=== PATIENT | male | born 1970 | race American Indian/Alaskan Native ===

== ENCOUNTER 2019-09-08 18:30 | Emergency (ER) | payer OTHER ==
--- NOTE | 2019-09-08 22:10 | Event Note ---
ED Screening Note ED Screening Note: c/o back pain upper abd pain states that he went to the ED three weeks ago and had acute pancreatitis no n/v/d no fever no urinary sx PMHx DM and neuropathy, HTN, HLD on insulin no allergies to meds This initial assessment/diagnostic orders/clinical plan/treatment(s) is/are subject to change based on patients health status, clinical progression and re- assessment by fellow clinical providers in the ED. Further treatment and workup at subsequent clinical providers discretion. Patient/guardian urged not to elope from the ED as their condition may be serious if not clinically assessed and managed. Initial orders include: labs, UA
[2019-09-08 23:07] LABS: Basophils # (Auto) 0.1 K/mm3 (0.0-0.1); Basophils % (Auto) 0.7 % (0.0-1.8); Eosinophils # (Auto) 0.1 K/mm3 (0.0-0.4); Eosinophils % (Auto) 0.6 % (0.0-4.3); Hematocrit 43.7 % (35.5-45.6); Hemoglobin 14.7 gm/dl (11.8-15.2); Lymphocytes # (Auto) 2.3 K/mm3 (1.2-5.4); Lymphocytes % (Auto) 24.6 % (13.4-35.0); Mean Corpuscular HGB Conc 34 % (32-34); Mean Corpuscular Volume 88 fl (84-94); Monocytes # (Auto) 0.6 K/mm3 (0.0-0.8); Monocytes % (Auto) 6.9 % (0.0-7.3); Platelet Count 241 K/mm3 (140-440); Red Blood Count 4.99 M/mm3 (3.65-5.03); Red Cell Distribution Width 14.2 % (13.2-15.2)
[2019-09-08 23:30] LABS: Alanine Aminotransferase 14 units/L (7-56); Albumin 4.4 g/dL (3.9-5); BUN/Creatinine Ratio 19; Blood Urea Nitrogen 19 mg/dL (9-20); Calcium 9.6 mg/dL (8.4-10.2); Hemolysis Index 11
[2019-09-09 01:41] LABS: Bilirubin,Urine NEG (Negative); Blood,Urine NEG (Negative); Color,Urine Straw (Yellow); Hyaline Casts,Urine 1 /LPF; Mucus,Urine FEW /HPF; Protein,Urine <15 mg/dL mg/dL (Negative); Urobilinogen,Urine < 2.0 mg/dL (<2.0)
--- NOTE | 2019-09-09 01:57 | Emergency Department Report ---
ED Abdominal Pain HPI - General Chief Complaint: Abdominal Pain Stated Complaint: BACK PAIN Time Seen by Provider: 09/08/19 22:08 Source: patient Mode of arrival: Ambulatory Limitations: No Limitations - History of Present Illness Initial Comments: 49-year-old -[place] male patient with a history of diabetes presents with complaints of right flank pain radiating around to his right/mid abdomen x 1 month. Patient reports he was diagnosed with pancreatitis when he went to the ED for back pain and abdominal pain about one month ago and was admitted. Patient states he also has followed up with his primary care concerning his back pain and was prescribed muscle relaxers which have not helped. He denies any nausea/vomiting/diarrhea, hematochezia/melena, dysuria/hematuria/urinary frequency, or history of gallstones. He rates his pain as 8/10 in severity. He states ibuprofen is not helping. MD Complaint: abdominal pain, flank pain -: month(s) Location: R flank Radiation: RUQ, RLQ, other (periumbilical) Severity scale (0 -10): 8 Quality: aching, sharp Consistency: constant Improves With: nothing Worsens With: nothing Associated Symptoms: denies other symptoms - Related Data Home Medications Medication Instructions Recorded Confirmed Last Taken Ciprofloxacin HCl 1 tab PO BID 03/29/15 03/31/15 03/30/15 09:00 Ibuprofen [Advil 100 MG tab] 200 mg PO Q6H PRN 03/29/15 03/29/15 03/28/15 Insulin Aspart (Nf) [NovoLOG 20 units SQ QAM 03/29/15 03/31/15 03/30/15 09:00 Flexpen] Tamsulosin [Flomax] 0.4 mg PO QDAY 03/29/15 03/29/15 03/26/15 Previous Rx's Medication Instructions Recorded Last Taken Type Acetaminophen/Codeine [Tylenol 1 tab PO Q6H PRN #8 tab 09/09/19 Unknown Rx /Codeine # 3 tab] Allergies Allergy/AdvReac Type Severity Reaction Status Date / Time No Known Allergies Allergy Unverified 03/29/15 08:47 ED Review of Systems ROS: Stated complaint: BACK PAIN Other details as noted in HPI Constitutional: denies: chills, diaphoresis, fever, malaise, weakness ENT: denies: throat pain Respiratory: denies: cough, shortness of breath Cardiovascular: denies: chest pain, palpitations Gastrointestinal: abdominal pain, nausea. denies: vomiting, diarrhea, constipation, hematemesis, melena, hematochezia Genitourinary: denies: urgency, dysuria, frequency, hematuria Musculoskeletal: back pain Skin: denies: rash, lesions Neurological: denies: headache, weakness, paresthesias Hematological/Lymphatic: denies: easy bleeding, swollen glands ED Past Medical Hx - Past Medical History Previous Medical History?: Yes Hx Hypertension: No (patient denies - says hasn't taken bp meds for long time) Hx Diabetes: Yes (TYPE II 2011) Hx GERD: Yes Hx HIV: No - Social History Smoking Status: Never Smoker Substance Use Type: None - Medications Home Medications: Home Medications Medication Instructions Recorded Confirmed Last Taken Type Ciprofloxacin HCl 1 tab PO BID 03/29/15 03/31/15 03/30/15 09:00 History Ibuprofen [Advil 100 MG tab] 200 mg PO Q6H PRN 03/29/15 03/29/15 03/28/15 Histor y Insulin Aspart (Nf) [NovoLOG 20 units SQ QAM 03/29/15 03/31/15 03/30/15 09:00 History Flexpen] Tamsulosin [Flomax] 0.4 mg PO QDAY 03/29/15 03/29/15 03/26/15 History Acetaminophen/Codeine [Tylenol 1 tab PO Q6H PRN #8 tab 09/09/19 Unknown Rx /Codeine # 3 tab] ED Physical Exam - General Limitations: No Limitations General appearance: alert, in no apparent distress - Head Head exam: Present: atraumatic, normocephalic - Eye Eye exam: Present: normal appearance. Absent: scleral icterus - ENT ENT exam: Present: normal orophraynx, mucous membranes moist - Neck Neck exam: Present: normal inspection, full ROM - Respiratory Respiratory exam: Present: normal lung sounds bilaterally. Absent: respiratory distress - Cardiovascular Cardiovascular Exam: Present: normal rhythm, tachycardia - GI/Abdominal GI/Abdominal exam: Present: soft, tenderness (RUQ, RLQ, periumbilical ), normal bowel sounds. Absent: distended, guarding, rebound, rigid, organomegaly, mass - Extremities Exam Extremities exam: Present: normal inspection. Absent: pedal edema - Back Exam Back exam: Present: normal inspection, CVA tenderness (R). Absent: CVA tende rness (L) - Neurological Exam Neurological exam: Present: alert, oriented X3 - Psychiatric Psychiatric exam: Present: normal affect, normal mood - Skin Skin exam: Present: warm, dry, intact, normal color. Absent: rash ED Course Vital Signs 09/08/19 09/08/19 09/09/19 19:14 22:08 03:41 Temperature 98.9 F 99 F Pulse Rate 121 H 116 H Respiratory 18 18 20 Rate Blood Pressure 136/91 136/91 Blood Pressure [Left] O2 Sat by Pulse 98 99 Oximetry 09/09/19 09/09/19 09/09/19 03:42 04:11 04:12 Temperature Pulse Rate Respiratory 20 20 20 Rate Blood Pressure Blood Pressure [Left] O2 Sat by Pulse Oximetry 09/09/19 06:40 Temperature 98.6 F Pulse Rate 88 Respiratory 20 Rate Blood Pressure Blood Pressure 128/72 [Left] O2 Sat by Pulse 97 Oximetry ED Medical Decision Making - Lab Data Result diagrams: 09/08/19 22:49 09/08/19 22:49 - Radiology Data Radiology results: report reviewed CT ABDOMEN AND PELVIS WITH CONTRAST HISTORY: Right flank, right abdominal pain, recent pancreat. COMPARISON: CT abdomen/pelvis from 07/16/2010 TECHNIQUE: CT images of the abdomen and pelvis were obtained following administration of intravenous contrast. All CT scans at this location are performed using CT dose reduction for ALARA by means of automated exposure control. CONTRAST: 100 ml of intravenous contrast administered. FINDINGS: Lungs/bones: Lung bases are clear. No acute osseous abnormality. Mild degenerative changes are present in the spine. Abdomen/pelvis: The liver, gallbladder, spleen, pancreas, adrenals, kidneys, and proximal GI tract appear unremarkable. Urinary bladder and prostate are unremarkable with no pelvic free fluid or acute colonic abnormality. The appendix and terminal ileum appear normal. IMPRESSION: 1. Unremarkable examination. LIMITED RUQ ABDOMINAL ULTRASOUND INDICATION: flank/RUQ pain. COMPARISON: CT abdomen/pelvis from today. FINDINGS: Pancreas: Visualized portions show no significant abnormality. Abdominal Aorta: No significant abnormality. IVC: No significant abnormality. Liver: The liver measures 15.6 cm in length. Mildly echogenic in relation to the renal cortex. Normal hepatopedal blood flow in the main portal vein. Gallbladder: No significant abnormality. Bile ducts: No significant abnormality. Common bile duct measures 1 mm. Right kidney: No significant abnormality visualized.. Free fluid: None. Additional Findings: None. IMPRESSION: 1. Mildly echogenic liver, most commonly seen with steatosis. Otherwise nothing acute. - Medical Decision Making 49-year-old -[place] male patient with a history of diabetes presents with complaints of right flank pain radiating around to his right/mid abdomen x 1 month. CBC shows normal white count. CMP and lipase are without acute findings. CT abdomen and right upper quadrant ultrasound are also without acute findings. Patient initially tachycardic upon arrival, heart rate now 78 after saline fluid bolus. He is nontoxic appearing and stable for discharge home. Patient informed to follow-up with gastroenterology within the next 2 days. Discussed strict return precautions in great detail with patient who verbalizes understanding. Critical care attestation.: If time is entered above; I have spent that time in minutes in the direct care of this critically ill patient, excluding procedure time. ED Disposition Clinical Impression: Right flank pain Abdominal pain Qualifiers: Abdominal location: generalized Qualified Code(s): R10.84 - Generalized abdominal pain Disposition: DC-01 TO HOME OR SELFCARE Is pt being admited?: No Condition: Stable Instructions: Abdominal Pain (ED) Prescriptions: Acetaminophen/Codeine [Tylenol /Codeine # 3 tab] 1 tab PO Q6H PRN #8 tab PRN Reason: Pain , Severe (7-10) Referrals: [facility] [Provider Group] - 2-3 Days Forms: Accompanied Note, Work/School Release Form(ED)
[2019-09-09] MEDS ORDERED: ONDANSETRON 4 MG/2 ML INJ IV ONE (02:01)
[2019-09-09] MEDS ORDERED: KETOROLAC 30 MG/1 ML INJ IV ONE (02:01)
[2019-09-09] MEDS ORDERED: MORPHINE 4 MG/1 ML INJ IV ONE (02:01)
[2019-09-09] MEDS ORDERED: SODIUM CHLORIDE 0.9% 1000 ML 1,000 ML IV ONE (02:01)
--- NOTE | 2019-09-09 05:05 | Cat Scan Report ---
CT ABDOMEN AND PELVIS WITH CONTRAST HISTORY: Right flank, right abdominal pain, recent pancreat. COMPARISON: CT abdomen/pelvis from 07/16/2010 TECHNIQUE: CT images of the abdomen and pelvis were obtained following administration of intravenous contrast. All CT scans at this location are performed using CT dose reduction for ALARA by means of automated exposure control. CONTRAST: 100 ml of intravenous contrast administered. FINDINGS: Lungs/bones: Lung bases are clear. No acute osseous abnormality. Mild degenerative changes are prese nt in the spine. Abdomen/pelvis: The liver, gallbladder, spleen, pancreas, adrenals, kidneys, and proximal GI tract a ppear unremarkable. Urinary bladder and prostate are unremarkable with no pelvic free fluid or acute colonic abnormality. The appendix and terminal ileum appear normal. IMPRESSION: 1. Unremarkable examination. Signer Name: Carlos Manuel Pena MD Signed: 09/09/2019 5:01 AM Workstation Name: [email or web address]
--- NOTE | 2019-09-09 05:44 | Ultrasound Report ---
LIMITED RUQ ABDOMINAL ULTRASOUND INDICATION: flank/RUQ pain. COMPARISON: CT abdomen/pelvis from today. FINDINGS: Pancreas: Visualized portions show no significant abnormality. Abdominal Aorta: No significant abnormality. IVC: No significant abnormality. Liver: The liver measures 15.6 cm in length. Mildly echogenic in relation to the renal cortex. Shivani l hepatopedal blood flow in the main portal vein. Gallbladder: No significant abnormality. Bile ducts: No significant abnormality. Common bile duct measures 1 mm. Right kidney: No significant abnormality visualized.. Free fluid: None. Additional Findings: None. IMPRESSION: 1. Mildly echogenic liver, most commonly seen with steatosis. Otherwise nothing acute. Signer Name: Carlos Manuel Pena MD Signed: 09/09/2019 5:40 AM Workstation Name: [id number]
[2019-09-09 07:18] VITALS: BP 128/72
== END 2019-09-09 06:40 | disposition home or self-care (01) ==
LOC: ED 18:30
DX: R10.10 Upper abdominal pain, unspecified (principal); M54.9 Dorsalgia, unspecified; E11.9 Type 2 diabetes mellitus without complications; K21.9 Gastro-esophageal reflux disease without esophagitis; Z79.899 Other long term (current) drug therapy
CPT/HCPCS: 36415; 74177; 76705; 80053; 81001; 83690; 85025; 96374; 96375; 99284; J1885; J2270; J2405; J7030; Q9967

== ENCOUNTER 2019-10-18 16:06 | Emergency (ER) | payer OTHER ==
[2019-10-18] MEDS ORDERED: SODIUM CHLORIDE 0.9% 1000 ML 1,000 ML IV ONE ×2 (17:11→20:12)
--- NOTE | 2019-10-18 17:14 | Emergency Department Report ---
Blank Doc - Documentation Documentation: 49 pmh Type 2 DM,HTN, c/op no eating x 4 days and having chest pain , fatigue, weakness, dizziness. No cough or fever. No travel. Plan Cardiac labs and cxr.
[2019-10-18 17:43] LABS: Basophils % (Auto) 0.3 % (0.0-1.8); Eosinophils % (Auto) 0.2 % (0.0-4.3); Hematocrit 49.1 % (35.5-45.6); Hemoglobin 16.5 gm/dl (11.8-15.2); Lymphocytes # (Auto) 2.4 K/mm3 (1.2-5.4); Lymphocytes % (Auto) 16.9 % (13.4-35.0); Mean Corpuscular HGB Conc 34 % (32-34); Mean Corpuscular Volume 86 fl (84-94); Platelet Count 305 K/mm3 (140-440); Red Blood Count 5.73 M/mm3 (3.65-5.03); Red Cell Distribution Width 13.3 % (13.2-15.2)
--- NOTE | 2019-10-18 17:45 | XRay Report ---
CHEST 2 VIEWS INDICATION / CLINICAL INFORMATION: Chest Pain. COMPARISON: 07/25/2010 FINDINGS: SUPPORT DEVICES: None. HEART / MEDIASTINUM: No significant abnormality. LUNGS / PLEURA: No significant pulmonary or pleural abnormality. .No pneumothorax. ADDITIONAL FINDINGS: No significant additional findings. IMPRESSION: 1. No acute findings. Signer Name: Chay Hernandez MD Signed: 10/18/2019 5:40 PM Workstation Name: [id number]
[2019-10-18 17:53] LABS: Alanine Aminotransferase 13 units/L (7-56); Albumin 4.2 g/dL (3.9-5); BUN/Creatinine Ratio 18; Blood Urea Nitrogen 20 mg/dL (9-20); Calcium 9.3 mg/dL (8.4-10.2); Hemolysis Index 46
[2019-10-18] MEDS ORDERED: INSULIN REGULAR, HUMAN 100 UNITS/1 ML IV ONE (19:06)
[2019-10-18] MEDS ORDERED: ONDANSETRON 4 MG/2 ML INJ IV ONE (19:06)
[2019-10-18] MEDS ORDERED: ONDANSETRON 4 MG/2 ML INJ ONE (19:07)
--- NOTE | 2019-10-18 19:11 | Emergency Department Report ---
ED Chest Pain HPI - General Chief Complaint: Chest Pain Stated Complaint: CHEST PAIN Time Seen by Provider: 10/18/19 17:09 Source: patient Mode of arrival: Stretcher Limitations: No Limitations - History of Present Illness Initial Comments: Patient is 49 years old male with history of diabetes. Patient brought to the emergency room via EMS for evaluation of chest pain, substernal, sharp with no radiation. Patient stated that he has not been eating or drinking well for the last 5 days with poor appetite. Patient also complaining of shortness of br eath. Patient denied any cough, fever or chills. No abdominal pain. MD Complaint: chest pain -: This afternoon Onset: during rest Pain Location: substernal Pain Radiation: none Severity: mild Severity scale (0 -10): 2 Quality: sharp - Related Data Home Medications Medication Instructions Recorded Confirmed Last Taken Ciprofloxacin HCl 1 tab PO BID 03/29/15 03/31/15 03/30/15 09:00 Ibuprofen [Advil 100 MG tab] 200 mg PO Q6H PRN 03/29/15 03/29/15 03/28/15 Insulin Aspart (Nf) [NovoLOG 20 units SQ QAM 03/29/15 03/31/15 03/30/15 09:00 Flexpen] Tamsulosin [Flomax] 0.4 mg PO QDAY 03/29/15 03/29/15 03/26/15 Previous Rx's Medication Instructions Recorded Last Taken Type Acetaminophen/Codeine [Tylenol 1 tab PO Q6H PRN #8 tab 09/09/19 Unknown Rx /Codeine # 3 tab] Ondansetron [Zofran Odt] 4 mg PO Q8HR PRN #14 tab.rapdis 10/18/19 Unknown Rx Allergies Allergy/AdvReac Type Severity Reaction Status Date / Time No Known Allergies Allergy Unverified 03/29/15 08:47 Heart Score - HEART Score History: Slightly suspicious EKG: Non-specific Age: 45-65 Risk factors: 1-2 risk factors Troponin: < normal limit HEART Score: 3 - Critical Actions Critical Actions: 0-3 pts:0.9-1.7%risk of adverse cardiac event.Candidate for discharge ED Review of Systems ROS: Stated complaint: CHEST PAIN Other details as noted in HPI Comment: All other systems reviewed and negative Constitutional: denies: chills, fever Respiratory: shortness of breath. denies: cough Cardiovascular: chest pain, palpitations Gastrointestinal: nausea. denies: abdominal pain, vomiting, diarrhea, constipation, hematemesis, melena, hematochezia Musculoskeletal: denies: back pain ED Past Medical Hx - Past Medical History Hx Hypertension: No (patient denies - says hasn't taken bp meds for long time) Hx Diabetes: Yes (TYPE II 2011) Hx GERD: Yes Hx HIV: No - Surgical History Additional Surgical History: Foot - Social History Smoking Status: Never Smoker Substance Use Type: None - Medications Home Medications: Home Medications Medication Instructions Recorded Confirmed Last Taken Type Ciprofloxacin HCl 1 tab PO BID 03/29/15 03/31/15 03/30/15 09:00 History Ibuprofen [Advil 100 MG tab] 200 mg PO Q6H PRN 03/29/15 03/29/15 03/28/15 History Insulin Aspart (Nf) [NovoLOG 20 units SQ QAM 03/29/15 03/31/15 03/30/15 09:00 History Flexpen] Tamsulosin [Flomax] 0.4 mg PO QDAY 03/29/15 03/29/15 03/26/15 History Acetaminophen/Codeine [Tylenol 1 tab PO Q6H PRN #8 tab 09/09/19 Unknown Rx /Codeine # 3 tab] Ondansetron [Zofran Odt] 4 mg PO Q8HR PRN #14 tab.rapdis 10/18/19 Unknown Rx ED Physical Exam - General Limitations: No Limitations General appearance: alert, in no apparent distress - Head Head exam: Present: atraumatic, normocephalic, normal inspection - Eye Eye exam: Present: normal appearance, PERRL - ENT ENT exam: Present: normal exam, normal orophraynx, mucous membranes moist - Neck Neck exam: Present: normal inspection, full ROM. Absent: tenderness, meningismus, lymphadenopathy, thyromegaly - Respiratory Respiratory exam: Present: normal lung sounds bilaterally - Cardiovascular Cardiovascular Exam: Present: tachycardia - GI/Abdominal GI/Abdominal exam: Present: soft, normal bowel sounds. Absent: distended, tenderness, guarding, rebound, rigid, organomegaly, mass, bruit, pulsatile mass, hernia - Extremities Exam Extremities exam: Present: normal inspection, full ROM, normal capillary refill. Absent: pedal edema, calf tenderness - Back Exam Back exam: Present: normal inspection, full ROM. Absent: CVA tenderness (R), CVA tenderness (L) - Neurological Exam Neurological exam: Present: alert, oriented X3, CN II-XII intact, normal gait, reflexes normal. Absent: motor sensory deficit - Psychiatric Psychiatric exam: Present: normal mood - Skin Skin exam: Present: warm, intact, normal color ED Course Vital Signs 10/18/19 10/18/19 10/18/19 16:13 18:49 21:07 Temperature 98.0 F Pulse Rate 96 H 120 H 109 H Respiratory 16 16 15 Rate Blood Pressure 109/58 154/59 154/104 [Right] O2 Sat by Pulse 96 99 100 Oximetry ED Medical Decision Making - Lab Data Result diagrams: 10/18/19 17:15 10/18/19 17:15 - EKG Data -: EKG Interpreted by Fl EKG shows normal: sinus rhythm Rate: tachycardia - EKG Data Interpretation: no acute changes - Radiology Data Radiology results: report reviewed - Medical Decision Making Patient is 49 years old male with history of diabetes. Patient brought to the emergency room via EMS for evaluation of chest pain, substernal, sharp with no radiation. Patient stated that he has not been eating or drinking well for the last 5 days with poor appetite. Patient also complaining of shortness of breath. Patient denied any cough, fever or chills. No abdominal pain. Patient received 2 L of normal saline, insulin and Zofran. Patient stated that he is feeling much better. Labs reviewed and is unremarkable except for e levated blood glucose and anion gap. Patient strongly advised to follow-up with his primary care physician in the next 2 to 3 days and to return to the ER if symptoms are not improved. Patient given prescription for Zofran. Critical care attestation.: If time is entered above; I have spent that time in minutes in the direct care of this critically ill patient, excluding procedure time. ED Disposition Clinical Impression: Dehydration, Acute hyperglycemia Disposition: -01 TO HOME OR SELFCARE Is pt being admited?: No Condition: Stable Instructions: Dehydration (ED), Diabetic Hyperglycemia (ED) Prescriptions: Ondansetron [Zofran Odt] 4 mg PO Q8HR PRN #14 tab.rapdis PRN Reason: Nausea And Vomiting Referrals: PRIMARY CARE,MD [Primary Care Provider] - 3-5 Days Forms: Work/School Release Form(ED)
--- NOTE | 2019-10-18 20:00 | Cat Scan Report ---
CT angio chest INDICATION / CLINICAL INFORMATION: Chest pain with shortness of breath. TECHNIQUE: Axial CT images were obtained after injection of Omnipaque 350, 100 cc IV contrast using CTA protocol . 3 plane MIP / 3D reconstructions were produced. All CT scans at this location are performed using C T dose reduction for ALARA by means of automated exposure control. COMPARISON: None available. FINDINGS: The lungs contain no mass, infiltrate or pleural fluid. Negative for mediastinal mass or adenopathy. No aneurysm, dissection or pulmonary embolus. Imaging of the upper abdomen is unremarkable. IMPRESSION: Negative for pulmonary embolus or pneumonia. Signer Name: Osmany Romero MD Signed: 10/18/2019 7:56 PM Workstation Name: [id number]
[2019-10-18] MEDS ORDERED: SODIUM CHLORIDE 0.9% 1000 ML 1,000 ML ONE (20:11)
[2019-10-18 21:03] LABS: Bilirubin,Urine NEG (Negative); Blood,Urine NEG (Negative); Color,Urine Straw (Yellow); Mucus,Urine FEW /HPF; Protein,Urine <15 mg/dL mg/dL (Negative); Urobilinogen,Urine < 2.0 mg/dL (<2.0); WBC,Urine < 1.0 /HPF (0.0-6.0)
[2019-10-18 22:52] VITALS: BP 156/97
== END 2019-10-18 22:52 | disposition home or self-care (01) ==
LOC: ED 16:06
DX: E86.0 Dehydration (principal); E11.65 Type 2 diabetes mellitus with hyperglycemia; K21.9 Gastro-esophageal reflux disease without esophagitis; Z79.1 Long term (current) use of non-steroidal anti-inflammatories (NSAID); Z79.899 Other long term (current) drug therapy; Z79.4 Long term (current) use of insulin
CPT/HCPCS: 36415; 71046; 71275; 80053; 81001; 82962; 83690; 84484; 85025; 85379; 93005; 93010; 96361; 96374; 96375; 99285; J2405; J7030; Q9967; J1815